=== PATIENT | male | born 1990 | race Caucasian/White ===

== ENCOUNTER 2017-10-28 14:26 | Emergency (ER) | payer OTHER ==
[~2017-10-28] VITALS: Ht 167.6 cm; Wt 62.1 kg
[2017-10-28] MEDS ORDERED: ATIVAN1 MG PO (15:05)
== END 2017-10-28 15:15 | disposition home or self-care (01) ==
LOC: ED 14:26
DX: F41.0 Panic disorder [episodic paroxysmal anxiety] (principal); F10.11 Alcohol abuse, in remission; F17.200 Nicotine dependence, unspecified, uncomplicated
CPT/HCPCS: 99283

== ENCOUNTER 2017-11-10 02:36 | Emergency (ER) | payer OTHER ==
[~2017-11-10] VITALS: Ht 167.6 cm; Wt 60.3 kg
[~2017-11-10 02:36] MED LIST: ATIVAN1 MG PO
[2017-11-10] MEDS ORDERED: KEFLEX500 MG PO (04:02)
== END 2017-11-10 04:23 | disposition home or self-care (01) ==
LOC: ED 02:36
PROC: 0HQGXZZ Repair Left Hand Skin, External Approach (ICD-10-PCS; principal; 2017-11-10)
PROC: 0HQ1XZZ Repair Face Skin, External Approach (ICD-10-PCS; principal; 2017-11-10)
DX: S01.81XA Laceration without foreign body of other part of head, initial encounter (principal); S61.512A Laceration without foreign body of left wrist, initial encounter; S61.211A Laceration without foreign body of left index finger without damage to nail, initial encounter; T14.8XXA Other injury of unspecified body region, initial encounter; F17.200 Nicotine dependence, unspecified, uncomplicated; W01.110A Fall on same level from slipping, tripping and stumbling with subsequent striking against sharp glass, initial encounter
CPT/HCPCS: 12004; 12011; 99283

== ENCOUNTER 2017-11-13 08:09 | Emergency (ER) | payer OTHER ==
[~2017-11-13] VITALS: Ht 167.6 cm; Wt 60.3 kg
[~2017-11-13 08:09] MED LIST changes: +KEFLEX500 MG PO
== END 2017-11-13 08:25 | disposition home or self-care (01) ==
LOC: ED 08:09
DX: Z00.8 Encounter for other general examination (principal)

== ENCOUNTER 2017-11-15 07:04 | Emergency (ER) | payer OTHER ==
[~2017-11-15] VITALS: Ht 167.6 cm; Wt 60.3 kg
== END 2017-11-15 07:55 | disposition home or self-care (01) ==
LOC: ED 07:04
DX: S01.81XD Laceration without foreign body of other part of head, subsequent encounter (principal); S61.512D Laceration without foreign body of left wrist, subsequent encounter; F17.200 Nicotine dependence, unspecified, uncomplicated; X58.XXXD Exposure to other specified factors, subsequent encounter
CPT/HCPCS: 99282

== ENCOUNTER 2017-11-22 08:51 | Emergency (ER) | payer OTHER ==
[~2017-11-22] VITALS: Ht 167.6 cm; Wt 60.3 kg
== END 2017-11-22 09:09 | disposition home or self-care (01) ==
LOC: ED 08:51
DX: Z48.02 Encounter for removal of sutures (principal)

== ENCOUNTER 2019-05-18 23:28 | Emergency (ER) | payer SELFPAY ==
[~2019-05-18] VITALS: Ht 167.6 cm; Wt 59.0 kg
== END 2019-05-18 23:34 | disposition home health service (06) ==
LOC: ED 23:28
DX: L98.9 Disorder of the skin and subcutaneous tissue, unspecified (principal); Z53.21 Procedure and treatment not carried out due to patient leaving prior to being seen by health care provider

== ENCOUNTER 2019-12-07 10:34 | Emergency (ER) | payer OTHER ==
[~2019-12-07] VITALS: Ht 167.6 cm; Wt 59.0 kg
--- OUTSIDE RECORDS SUMMARY | 2019-12-07 10:38 | XMS ---
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 Alan Primary Care Current MD Stephen PHONE: [phone] [place] has no Care Guidelines for this patient. [place] VISIT COUNT (12 MO.) 2 [facility] [place] TOTAL 2 NOTE: Visits indicate total known visits. ED/UCC VISIT TRACKING (12 MO.) 12/07/2019 10:34 [facility] [place] TYPE: Emergency COMPLAINT: - DENTAL PAIN 05/18/2019 23:29 [facility] [place] TYPE: Emergency COMPLAINT: - SKIN PROBLEM DIAGNOSES: - Disorder of the skin and subcutaneous tissue, unspecified - Proc/trtmt not crd out d/t pt lv [facility] INPATIENT VISIT TRACKING (12 MO.) No inpatient visits to display in this time frame [id number]
== END 2019-12-07 13:00 | disposition home or self-care (01) ==
LOC: ED 10:34
DX: M65.862 Other synovitis and tenosynovitis, left lower leg (principal); F17.200 Nicotine dependence, unspecified, uncomplicated
CPT/HCPCS: 93971; 99284-25

== ENCOUNTER 2021-12-11 01:26 | Emergency (ER) | payer OTHER ==
[~2021-12-11] VITALS: Ht 167.6 cm; Wt 59.0 kg
--- OUTSIDE RECORDS SUMMARY | 2021-12-11 01:30 | XMS ---
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 Elopement at [facility] 04/26/2021 00:18 - Other Details: PATIENT LWBS. CRITERIA MET - Group Notification CARE PROVIDERS YARELIS STRATTON [facility] 05/21/2019-Current PHONE: Unknown [place] has no Care Guidelines for this patient. [place] VISIT COUNT (12 MO[address] [facility] TOTAL 3 NOTE: Visits indicate total known visits. ED/UCC VISIT TRACKING (12 MO.) 12/11/2021 01:26 [facility] [place] TYPE: Emergency COMPLAINT: - MOUTH PAIN 05/09/2021 21:43 [facility] [place] TYPE: Emergency COMPLAINT: - POSSIBLE SEIZURE 04/26/2021 00:18 [facility] [place] TYPE: Emergency COMPLAINT: - SKIN PROBLEM INPATIENT VISIT TRACKING (12 MO.) No inpatient visits to display in this time frame [id number]
[2021-12-11] MEDS ORDERED: CLINDAMYCIN HC300 MG PO (02:52)
== END 2021-12-11 03:10 | disposition home or self-care (01) ==
LOC: ED 01:26
DX: K04.7 Periapical abscess without sinus (principal); F15.10 Other stimulant abuse, uncomplicated; G25.81 Restless legs syndrome; F17.200 Nicotine dependence, unspecified, uncomplicated
CPT/HCPCS: 36415; 80048; 81001; 85025; 99283; A9270

== ENCOUNTER 2022-01-11 02:15 | Emergency (ER) | payer OTHER ==
[~2022-01-11] VITALS: Ht 167.6 cm; Wt 65.4 kg
[~2022-01-11 02:15] MED LIST changes: +CLINDAMYCIN HC300 MG PO
--- OUTSIDE RECORDS SUMMARY | 2022-01-11 02:20 | XMS ---
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 Elopement at [facility] 04/26/2021 00:18 - Other Details: PATIENT LWBS. CRITERIA MET - Group Notification CARE PROVIDERS YARELIS STRATTON [facility] 05/21/2019-Current PHONE: Unknown [place] has no Care Guidelines for this patient. [place] VISIT COUNT (12 MO.) 4 [facility] TOTAL 4 NOTE: Visits indicate total known visits. ED/UCC VISIT TRACKING (12 MO.) 01/11/2022 02:16 [facility] [place] TYPE: Emergency COMPLAINT: - SLEEP PROBLEM 12/11/2021 01:26 [facility] [place] TYPE: Emergency COMPLAINT: - MOUTH PAIN DIAGNOSES: - Other stimulant abuse, uncomplicated - Restless legs syndrome - Periapical abscess without sinus - Nicotine dependence, unspecified, uncomplicated - Other specified disorders of teeth and supporting structures 05/09/2021 21:43 [facility] [place] TYPE: Emergency COMPLAINT: - POSSIBLE SEIZURE 04/26/2021 00:18 [facility] [place] TYPE: Emergency COMPLAINT: - SKIN PROBLEM INPATIENT VISIT TRACKING (12 MO.) No inpatient visits to display in this time frame [id number]
== END 2022-01-11 02:35 | disposition home or self-care (01) ==
LOC: ED 02:15
DX: G47.9 Sleep disorder, unspecified (principal); G25.81 Restless legs syndrome; F17.200 Nicotine dependence, unspecified, uncomplicated
CPT/HCPCS: 99283

== ENCOUNTER 2022-03-05 09:57 | Emergency (ER) | payer OTHER ==
[~2022-03-05] VITALS: Ht 167.6 cm; Wt 65.3 kg
--- OUTSIDE RECORDS SUMMARY | 2022-03-05 10:07 | XMS ---
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 Elopement at [facility] 04/26/2021 00:18 - Other Details: PATIENT LWBS. CRITERIA MET - Group Notification CARE PROVIDERS YARELIS STRATTON [facility] 05/21/2019-Current PHONE: Unknown [place] has no Care Guidelines for this patient. [place] VISIT COUNT (12 MO.) 5 [facility] TOTAL 5 NOTE: Visits indicate total known visits. ED/UCC VISIT TRACKING (12 MO.) 03/05/2022 09:57 [facility] [place] TYPE: Emergency COMPLAINT: - SEIZURE 01/11/2022 02:16 [facility] [place] TYPE: Emergency COMPLAINT: - SLEEP PROBLEM DIAGNOSES: - Restless legs syndrome - Nicotine dependence, unspecified, uncomplicated - Sleep disorder, unspecified 12/11/2021 01:26 [facility] [place] TYPE: Emergency [...] visits to display in this time frame [id number]
== END 2022-03-05 11:38 | disposition home or self-care (01) ==
LOC: ED 09:57
DX: F15.10 Other stimulant abuse, uncomplicated (principal); F41.0 Panic disorder [episodic paroxysmal anxiety]; F17.200 Nicotine dependence, unspecified, uncomplicated
CPT/HCPCS: A9270-GY

== ENCOUNTER 2024-05-23 13:56 | Emergency (ER) | payer OTHER ==
[~2024-05-23] VITALS: Ht 167.6 cm; Wt 66.5 kg
--- OUTSIDE RECORDS SUMMARY | 2024-05-23 14:03 | XMS ---
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 E.D. VISIT COUNT (12 MO.) 2 [facility]arito [facility] 1 [facility] TOTAL 3 NOTE: Visits indicate total known visits. ED/UCC VISIT TRACKING (12 MO.) 05/23/2024 13:57 [facility] [place] TYPE: Emergency COMPLAINT: - ANXIETY 02/26/2024 19:50 Margarito Juarez [place] TYPE: Emergency DIAGNOSES: - Opioid dependence, in remission - withdrawl 01/21/2024 10:40 [facility] [place] TYPE: Emergency DIAGNOSES: - Restlessness and agitation - OPIATE WITHDRAWAL INPATIENT VISIT TRACKING (12 MO.) No inpatient visits to display in this time frame [id number]
[2024-05-23] MEDS ORDERED: BUPRENORPHINE-1 EACH SL (14:08)
[2024-05-23 14:30] VITALS: BP 131/83
== END 2024-05-23 14:30 | disposition home or self-care (01) ==
LOC: ED 13:56
DX: F41.9 Anxiety disorder, unspecified (principal); F17.200 Nicotine dependence, unspecified, uncomplicated
CPT/HCPCS: 99283